=== PATIENT | female | born 1960 | race Hispanic/Latino ===

== ENCOUNTER 2021-04-08 18:35 | Emergency (ER) | payer SELFPAY ==
[2021-04-08 19:39] VITALS: BP 165/80
--- NOTE | 2021-04-08 20:47 | Emergency Department Report ---
ED ENT HPI - General Chief complaint: Dental/Oral Stated complaint: FACIAL SWELLING Time Seen by Provider: 04/08/21 20:32 Source: patient Mode of arrival: Ambulatory Limitations: No Limitations - History of Present Illness Initial comments: Patient is a 60-year-old female presents emergency room with complaints of dental pain that began yesterday. Patient states that she was eating a taco and broke her tooth. She states that this morning she woke up with some facial swelling. She has not seen a dentist in approximately 15 to 20 years. She denies any fever, vomiting, difficulty swallowing, difficulty breathing. PMHx copd. No allergies medications. - Related Data Home Medications Medication Instructions Recorded Confirmed Last Taken Amiodarone [Cordarone] 200 mg PO BID 12/20/14 12/20/14 Unknown Aspirin [Aspirin BABY CHEW TAB] 81 mg PO QDAY 12/20/14 12/20/14 Unknown Atorvastatin [Lipitor] 40 mg PO QHS 12/20/14 12/20/14 Unknown Famotidine [Pepcid] 20 mg PO BID 12/20/14 12/20/14 Unknown Ferrous Sulfate [Feosol] 325 mg PO BID 12/20/14 12/20/14 Unknown Furosemide [Lasix] 40 mg PO QDAY 12/20/14 12/20/14 Unknown HYDROcodone/APAP 5-325 [[place] 12/20/14 12/20/14 Unknown 5-325 mg TAB] Metoprolol [Lopressor] 25 mg PO BID 12/20/14 12/20/14 Unknown Multivitamin [Multi Vitamin Daily] 12/20/14 12/20/14 Unknown Potassium Chloride [K-Dur] 20 meq PO QDAY 12/20/14 12/20/14 Unknown Previous Rx's Medication Instructions Recorded Last Taken Type Albuterol Sulfate [Ventolin HFA] 2 puff IH Q4H PRN #1 hfa.aer.ad 12/20/14 Unknown Rx Azithromycin [Zithromax Z-ZONIA] 250 mg PO DAILY #6 tablet 12/20/14 Unknown Rx Prednisone [Prednisone 10 mg 10 mg PO .TAPER #1 tab.ds.pk 12/20/14 Unknown Rx (6-Day Pack, 21 Tabs)] Promethazine /Codeine 5 ml PO Q6H PRN #30 ml 12/20/14 Unknown Rx [Phenergan/Codeine 6.25-10 mg/5 ml] Chlorhexidine Mouthwash [Peridex] 15 ml MM BID #1 bottle 04/08/21 Unknown Rx Naproxen [EC-Naprosyn] 500 mg PO BID PRN #14 tablet.dr 04/08/21 Unknown Rx Penicillin Vk [Veetids TAB] 500 mg PO QID 7 Days #56 tablet 04/08/21 Unknown Rx Allergies Allergy/AdvReac Type Severity Reaction Status Date / Time No Known Allergies Allergy Unverified 11/20/14 04:11 ED Dental HPI - General Chief complaint: Dental/Oral Stated complaint: FACIAL SWELLING Time Seen by Provider: 04/08/21 20:32 Source: patient Mode of arrival: Ambulatory Limitations: No Limitations - Related Data Home Medications Medication Instructions Recorded Confirmed Last Taken Amiodarone [Cordarone] 200 mg PO BID 12/20/14 12/20/14 Unknown Aspirin [Aspirin BABY CHEW TAB] 81 mg PO QDAY 12/20/14 12/20/14 Unknown Atorvastatin [Lipitor] 40 mg PO QHS 12/20/14 12/20/14 Unknown Famotidine [Pepcid] 20 mg PO BID 12/20/14 12/20/14 Unknown Ferrous Sulfate [Feosol] 325 mg PO BID 12/20/14 12/20/14 Unknown Furosemide [Lasix] 40 mg PO QDAY 12/20/14 12/20/14 Unknown HYDROcodone/APAP 5-325 [[place] 12/20/14 12/20/14 Unknown 5-325 mg TAB] Metoprolol [Lopressor] 25 mg PO BID 12/20/14 12/20/14 Unknown Multivitamin [Multi Vitamin Daily] 12/20/14 12/20/14 Unknown Potassium Chloride [K-Dur] 20 meq PO QDAY 12/20/14 12/20/14 Unknown Previous Rx's Medication Instructions Recorded Last Taken Type Albuterol Sulfate [Ventolin HFA] 2 puff IH Q4H PRN #1 hfa.aer.ad 12/20/14 Unknown Rx Azithromycin [Zithromax Z-ZONIA] 250 mg PO DAILY #6 tablet 12/20/14 Unknown Rx Prednisone [Prednisone 10 mg 10 mg PO .TAPER #1 tab.ds.pk 12/20/14 Unknown Rx (6-Day Pack, 21 Tabs)] Promethazine /Codeine 5 ml PO Q6H PRN #30 ml 12/20/14 Unknown Rx [Phenergan/Codeine 6.25-10 mg/5 ml] Chlorhexidine Mouthwash [Peridex] 15 ml MM BID #1 bottle 04/08/21 Unknown Rx Naproxen [EC-Naprosyn] 500 mg PO BID PRN #14 tablet. 04/08/21 Unknown Rx Penicillin Vk [Veetids TAB] 500 mg PO QID 7 Days #56 tablet 04/08/21 Unknown Rx Allergies Allergy/AdvReac Type Severity Reaction Status Date / Time No Known Allergies Allergy Unverified 11/20/14 04:11 ED Review of Systems ROS: Stated complaint: FACIAL SWELLING Other details as noted in HPI Comment: All other systems reviewed and negative ED Past Medical Hx - Past Medical History Previous Medical History?: Yes Hx Congestive Heart Failure: No Hx Diabetes: No Hx Asthma: No Hx COPD: Yes Additional medical history: Heart Valve disease - Surgical History Past Surgical History?: Yes Hx Open Heart Surgery: Yes Additional Surgical History: Heart Valve Replacement. - Social History Smoking Status: Never Smoker Substance Use Type: None - Medications Home Medications: Home Medications Medication Instructions Recorded Confirmed Last Taken Type Albuterol Sulfate [Ventolin HFA] 2 puff IH Q4H PRN #1 hfa.aer.ad 12/20/14 Unknown Rx Amiodarone [Cordarone] 200 mg PO BID 12/20/14 12/20/14 Unknown History Aspirin [Aspirin BABY CHEW TAB] 81 mg PO QDAY 12/20/14 12/20/14 Unknown History Atorvastatin [Lipitor] 40 mg PO QHS 12/20/14 12/20/14 Unknown History Azithromycin [Zithromax Z-ZONIA] 250 mg PO DAILY #6 tablet 12/20/14 Unknown Rx Famotidine [Pepcid] 20 mg PO BID 12/20/14 12/20/14 Unknown History Ferrous Sulfate [Feosol] 325 mg PO BID 12/20/14 12/20/14 Unknown History Furosemide [Lasix] 40 mg PO QDAY 12/20/14 12/20/14 Unknown History HYDROcodone/APAP 5-325 [[place] 12/20/14 12/20/14 Unknown History 5-325 mg TAB] Metoprolol [Lopressor] 25 mg PO BID 12/20/14 12/20/14 Unknown History Multivitamin [Multi Vitamin Daily] 12/20/14 12/20/14 Unknown History Potassium Chloride [K-Dur] 20 meq PO QDAY 12/20/14 12/20/14 Unknown History Prednisone [Prednisone 10 mg 10 mg PO .TAPER #1 tab.ds.pk 12/20/14 Unknown Rx (6-Day Pack, 21 Tabs)] Promethazine /Codeine 5 ml PO Q6H PRN #30 ml 12/20/14 Unknown Rx [Phenergan/Codeine 6.25-10 mg/5 ml] Chlorhexidine Mouthwash [Peridex] 15 ml MM BID #1 bottle 04/08/21 Unknown Rx Naproxen [EC-Naprosyn] 500 mg PO BID PRN #14 tablet.dr 04/08/21 Unknown Rx Penicillin Vk [Veetids TAB] 500 mg PO QID 7 Days #56 tablet 04/08/21 Unknown Rx ED Physical Exam - General Limitations: No Limitations General appearance: alert, in no apparent distress - Head Head exam: Present: atraumatic, normocephalic - Eye Eye exam: Present: normal appearance - ENT ENT exam: Present: mucous membranes moist, other (there is a cracked tooth present to the left upper incisor, there is associated induration and erythema of the adjacent gumline, no fluctuance, no drainage, no necrosis, mild left facial edema, uvula is mildine, no uvular edema or deviation, no trismus, no tongue elevation, no muffled voice) - Respiratory Respiratory exam: Absent: respiratory distress, accessory muscle use - Neurological Exam Neurological exam: Present: alert, oriented X3 - Psychiatric Psychiatric exam: Present: normal affect, normal mood - Skin Skin exam: Present: warm, dry, intact ED Course Vital Signs 04/08/21 19:29 Temperature 98.5 F Pulse Rate 86 Respiratory 18 Rate Blood Pressure 165/80 O2 Sat by Pulse 96 Oximetry ED Medical Decision Making - Medical Decision Making Patient is a 60-year-old female presents emergency room with complaints of dental pain that began yesterday. Patient states that she was eating a taco and broke her tooth. She states that this morning she woke up with some facial swelling. She has not seen a dentist in approximately 15 to 20 years. She denies any fever, vomiting, difficulty swallowing, difficulty breathing. PMHx copd. No allergies medications. vss. on exam: there is a cracked tooth present to the left upper incisor, there is associated induration and erythema of the adjacent gumline, no fluctuance, no drainage, no necrosis, mild left facial edema, uvula is mildine, no uvular edema or deviation, no trismus, no tongue elevation, no muffled voice. examination appears consistent with dental abscess and mild early facial cellulitis. No signs of facial cellulitis or Joshua's at this time. Given prescription for medications. Discussed the importance of dental follow-up. Advised patient Please take medication as prescribed. Follow-up with a dentist. It is very important that you follow-up. Return to emergency room for any new or worsening symptoms. Critical care attestation.: If time is entered above; I have spent that time in minutes in the direct care of this critically ill patient, excluding procedure time. ED Disposition Clinical Impression: Dental abscess, Cracked tooth, Dental caries Disposition: TO HOME OR SELFCARE Is pt being admited?: No Does the pt Need Aspirin: No Condition: Stable Instructions: Dental Abscess Additional Instructions: Please take medication as prescribed. Follow-up with a dentist. It is very important that you follow-up. Return to emergency room for any new or worsening symptoms. Prescriptions: Naproxen [EC-Naprosyn] 500 mg PO BID PRN #14 tablet.dr RIOS Reason: pain Chlorhexidine Mouthwash [Peridex] 15 ml MM BID #1 bottle Penicillin Vk [Veetids TAB] 500 mg PO QID 7 Days #56 tablet Referrals: [facility] [Outside] - 2-3 Days [facility] [Outside] - 2-3 Days Time of Disposition: 20:45 Print Language: SPANISH
== END 2021-04-08 20:51 | disposition home or self-care (01) ==
LOC: ED 18:35
DX: K04.7 Periapical abscess without sinus (principal); K03.81 Cracked tooth; K02.9 Dental caries, unspecified; J44.9 Chronic obstructive pulmonary disease, unspecified; Z98.890 Other specified postprocedural states; Z79.899 Other long term (current) drug therapy
CPT/HCPCS: 99282

== ENCOUNTER 2021-05-17 12:42 | Emergency (ER) | payer OTHER, SELFPAY ==
[2021-05-17] MEDS ORDERED: ACETAMINOPHEN 325 MG TAB PO ONE (16:59)
--- NOTE | 2021-05-17 17:06 | Emergency Department Report ---
- General Chief Complaint: Upper Respiratory Infection Stated Complaint: COVID TAMEKA, BODY ACHE Time Seen by Provider: 05/17/21 16:58 Source: patient Mode of arrival: Ambulatory Limitations: No Limitations - History of Present Illness Initial Comments: Patient is a 60-year-old female presents emergency room with complaints of symptoms of COVID 19. She states that her daughter and her granddaughter both tested positive for Covid. she states that she was supposed to be tested today but she missed her appointment because she slept in. She states that she has had symptoms since Monday night 05/14/2021. Patient states her symptoms are fever, chills, fatigue, generalized body aches, headache, dry cough, mild occasional shortness of breath, diarrhea. she states occasionally after coughing she has wheezing. She denies any nausea, vomiting, chest pain, abdominal pain. Past medical history of valve replacement with pig valve. No allergies to medicines. She states that she is a non-smoker. - Related Data Home Medications Medication Instructions Recorded Confirmed Last Taken Amiodarone [Cordarone] 200 mg PO BID 12/20/14 12/20/14 Unknown Aspirin [Aspirin BABY CHEW TAB] 81 mg PO QDAY 12/20/14 12/20/14 Unknown Atorvastatin [Lipitor] 40 mg PO QHS 12/20/14 12/20/14 Unknown Famotidine [Pepcid] 20 mg PO BID 12/20/14 12/20/14 Unknown Ferrous Sulfate [Feosol] 325 mg PO BID 12/20/14 12/20/14 Unknown Furosemide [Lasix] 40 mg PO QDAY 12/20/14 12/20/14 Unknown HYDROcodone/APAP 5-325 [[place] 12/20/14 12/20/14 Unknown 5-325 mg TAB] Metoprolol [Lopressor] 25 mg PO BID 12/20/14 12/20/14 Unknown Multivitamin [Multi Vitamin Daily] 12/20/14 12/20/14 Unknown Potassium Chloride [K-Dur] 20 meq PO QDAY 12/20/14 12/20/14 Unknown Previous Rx's Medication Instructions Recorded Last Taken Type Albuterol Sulfate [Ventolin HFA] 2 puff IH Q4H PRN #1 hfa.aer.ad 12/20/14 Unknown Rx Azithromycin [Zithromax Z-ZONIA] 250 mg PO DAILY #6 tablet 12/20/14 Unknown Rx Prednisone [Prednisone 10 mg 10 mg PO .TAPER #1 tab.ds.pk 12/20/14 Unknown Rx (6-Day Pack, 21 Tabs)] Promethazine /Codeine 5 ml PO Q6H PRN #30 ml 12/20/14 Unknown Rx [Phenergan/Codeine 6.25-10 mg/5 ml] Chlorhexidine Mouthwash [Peridex] 15 ml MM BID #1 bottle 04/08/21 Unknown Rx Naproxen [EC-Naprosyn] 500 mg PO BID PRN #14 tablet.dr 04/08/21 Unknown Rx Penicillin Vk [Veetids TAB] 500 mg PO QID 7 Days #56 tablet 04/08/21 Unknown Rx Albuterol Sulfate [Proventil Hfa] 1 puff IH TID PRN #1 hfa.aer.ad 05/17/21 Unknown Rx Benzonatate [Tessalon Perles] 100 mg PO Q8HR PRN #12 capsule 05/17/21 Unknown Rx guaiFENesin ER [Mucinex ER] 600 mg PO BID #14 tablet.er 05/17/21 Unknown Rx Allergies Allergy/AdvReac Type Severity Reaction Status Date / Time No Known Allergies Allergy Unverified 11/20/14 04:11 ED Review of Systems ROS: Stated complaint: COVID TAMEKA, BODY ACHE Other details as noted in HPI Comment: All other systems reviewed and negative ED Past Medical Hx - Past Medical History Previous Medical History?: Yes Hx Congestive Heart Failure: No Hx Diabetes: No Hx Asthma: No Hx COPD: Yes Additional medical history: Heart Valve disease - Surgical History Past Surgical History?: Yes Hx Open Heart Surgery: Yes Additional Surgical History: Heart Valve Replacement. - Social History Smoking Status: Never Smoker Substance Use Type: None - Medications Home Medications: Home Medications Medication Instructions Recorded Confirmed Last Taken Type Albuterol Sulfate [Ventolin HFA] 2 puff IH Q4H PRN #1 hfa.aer.ad 12/20/14 Unknown Rx Amiodarone [Cordarone] 200 mg PO BID 12/20/14 12/20/14 Unknown History Aspirin [Aspirin BABY CHEW TAB] 81 mg PO QDAY 12/20/14 12/20/14 Unknown History Atorvastatin [Lipitor] 40 mg PO QHS 12/20/14 12/20/14 Unknown History Azithromycin [Zithromax Z-ZONIA] 250 mg PO DAILY #6 tablet 12/20/14 Unknown Rx Famotidine [Pepcid] 20 mg PO BID 12/20/14 12/20/14 Unknown History Ferrous Sulfate [Feosol] 325 mg PO BID 12/20/14 12/20/14 Unknown History Furosemide [Lasix] 40 mg PO QDAY 12/20/14 12/20/14 Unknown History HYDROcodone/APAP 5-325 [[place] 12/20/14 12/20/14 Unknown History 5-325 mg TAB] Metoprolol [Lopressor] 25 mg PO BID 12/20/14 12/20/14 Unknown History Multivitamin [Multi Vitamin Daily] 12/20/14 12/20/14 Unknown History Potassium Chloride [K-Dur] 20 meq PO QDAY 12/20/14 12/20/14 Unknown History Prednisone [Prednisone 10 mg 10 mg PO .TAPER #1 tab.ds.pk 12/20/14 Unknown Rx (6-Day Pack, 21 Tabs)] Promethazine /Codeine 5 ml PO Q6H PRN #30 ml 12/20/14 Unknown Rx [Phenergan/Codeine 6.25-10 mg/5 ml] Chlorhexidine Mouthwash [Peridex] 15 ml MM BID #1 bottle 04/08/21 Unknown Rx Naproxen [EC-Naprosyn] 500 mg PO BID PRN #14 tablet.dr 04/08/21 Unknown Rx Penicillin Vk [Veetids TAB] 500 mg PO QID 7 Days #56 tablet 04/08/21 Unknown Rx Albuterol Sulfate [Proventil Hfa] 1 puff IH TID PRN #1 hfa.aer.ad 05/17/21 Unkn own Rx Benzonatate [Tessalon Perles] 100 mg PO Q8HR PRN #12 capsule 05/17/21 Unknown Rx guaiFENesin ER [Mucinex ER] 600 mg PO BID #14 tablet.er 05/17/21 Unknown Rx ED Physical Exam - General Limitations: No Limitations General appearance: alert, in no apparent distress - Head Head exam: Present: atraumatic, normocephalic - Eye Eye exam: Present: normal appearance - ENT ENT exam: Present: mucous membranes moist - Respiratory Respiratory exam: Present: normal lung sounds bilaterally. Absent: respiratory distress, wheezes, rales, rhonchi, stridor, chest wall tenderness, accessory muscle use, decreased breath sounds, prolonged expiratory - Cardiovascular Cardiovascular Exam: Present: regular rate, normal rhythm, systolic murmur - Extremities Exam Extremities exam: Absent: pedal edema - Neurological Exam Neurological exam: Present: alert, oriented X3 - Psychiatric Psychiatric exam: Present: normal affect, normal mood - Skin Skin exam: Present: warm, dry, intact ED Course Vital Signs 05/17/21 05/17/21 05/17/21 15:11 18:00 18:21 Temperature 100.2 F H Pulse Rate 86 88 88 Respiratory 20 18 18 Rate Blood Pressure 140/78 Blood Pressure 118/84 118/84 [Right] O2 Sat by Pulse 98 95 95 Oximetry ED Medical Decision Making - Lab Data Result diagrams: 05/17/21 17:00 05/17/21 17:00 Lab Results 05/17/21 05/17/21 Range/Units 17:00 17:00 WBC 5.3 (4.5-11.0) K/mm3 RBC 4.46 (3.65-5.03) M/mm3 Hgb 14.7 H (10.1-14.3) gm/dl Hct 42.8 (30.3-42.9) % MCV 96 (79-97) fl MCH 33 H (28-32) pg MCHC 34 (30-34) % RDW 13.8 (13.2-15.2) % Plt Count 157 (140-440) K/mm3 Lymph % (Auto) 19.0 (13.4-35.0) % [place] % (Auto) 7.3 (0.0-7.3) % Eos % (Auto) 0.2 (0.0-4.3) % Baso % (Auto) 0.4 (0.0-1.8) % Lymph # (Auto) 1.0 L (1.2-5.4) K/mm3 [place] # (Auto) 0.4 (0.0-0.8) K/mm3 Eos # (Auto) 0.0 (0.0-0.4) K/mm3 Baso # (Auto) 0.0 (0.0-0.1) K/mm3 Seg Neutrophils % 73.1 H (40.0-70.0) % Seg Neutrophils # 3.9 (1.8-7.7) K/mm3 Sodium 135 L (137-145) mmol/L Potassium 4.0 (3.6-5.0) mmol/L Chloride 97.9 L (98-107) mmol/L Carbon Dioxide 27 (22-30) mmol/L Anion Gap 14 mmol/L BUN 13 (7-17) mg/dL Creatinine 0.6 (0.6-1.2) mg/dL Estimated GFR > 60 ml/min BUN/Creatinine Ratio 22 % Glucose 121 H (65-100) mg/dL Calcium 9.4 (8.4-10.2) mg/dL Total Bilirubin 0.40 (0.1-1.2) mg/dL AST 35 (5-40) units/L ALT 30 (7-56) units/L Alkaline Phosphatase 143 H (35-129) units/L Total Protein 7.4 (6.3-8.2) g/dL Albumin 4.6 (3.9-5) g/dL Albumin/Globulin Ratio 1.6 % Vital Signs 05/17/21 05/17/21 05/17/21 15:11 18:00 18:21 Temperature 100.2 F H Pulse Rate 86 88 88 Respiratory 20 18 18 Rate Blood Pressure 140/78 Blood Pressure 118/84 118/84 [Right] O2 Sat by Pulse 98 95 95 Oximetry - Radiology Data Radiology results: report reviewed Ordering Physician: ALISON JACKSON MD Date of Service: 05/17/21 Procedure(s): XR chest routine 2V Accession Number(s): [id number] cc: ALISON JACKSON MD Fluoro Time In Minutes: CHEST 2 VIEWS INDICATION / CLINICAL INFORMATION: SOB. COMPARISON: Chest radiograph 11/20/2014 FINDINGS: SUPPORT DEVICES: He is status post median sternotomy. Aortic valve prosthesis. HEART / MEDIASTINUM: Cardiomegaly. LUNGS / PLEURA: Calcified granuloma right midlung zone. No focal consolidation. No significant effusion No pneumothorax. ADDITIONAL FINDINGS: No significant additional findings. IMPRESSION: 1. No acute findings. Signer Name: Yovani Moreira MD Signed: 05/17/2021 5:19 PM Workstation Name: [id number] Transcribed By: SB Dictated By: YOVANI MOREIRA MD Electronically Authenticated By: YOVANI MOREIRA MD Signed Date/Time: 05/17/211718 DD/ 16 TD/TT: - Medical Decision Making Patient is a 60-year-old female presents emergency room with complaints of symptoms of COVID 19. She states that her daughter and her granddaughter both tested positive for Covid. she states that she was supposed to be tested today but she missed her appointment because she slept in. She states that she has had symptoms since [place] night 05/14/2021. Patient states her symptoms are fever, chills, fatigue, generalized body aches, headache, dry cough, mild occasional shortness of breath, diarrhea. she states occasionally after coughing she has wheezing. She denies any nausea, vomiting, chest pain, abdominal pain. Past medical history of valve replacement with pig valve. No allergies to medicines. She states that she is a non-smoker. Vitals with mild low-grade temperature, otherwise stable. Patient is maintaining oxygen saturation of 95% or greater on room air. Chest x-ray 1. No acute findings. Labs are stable. Discussed possibility of COVID-19 with patient, discussed outpatient testing, discussed self quarantine, discussed strict return precautions. Advised patient to get a pulse oximetry [id number] and to return if oxygen saturation was 93% or lower. Patient has no signs of severe COVID at this time, she is maintaining her oxygen saturation, her x-ray is WNL. Patient given prescription for symptomatic relief. Advised patient please take medication as prescribed. Please increase your fluid intake over the next several days. May take Tylenol as needed for fever or body aches. Follow-up with a primary care doctor for reexamination. Return to emergency room immediately for any new or worsening symptoms including but not limited to difficulty breathing, shortness of breath, severe chest pain, unable to tolerate by mouth intake, etc. Please self quarantine for 10 days from the onset of your symptoms. Please do not go out in public. If you are around others at home please wear a mask. If you need to cough or sneeze please do so in a napkin and immediately throw it away and immediately wash your hands. Wash your hands frequently. Wipe everything down. Recommend for you to get COVID-19 testing, may have this done at primary care doctor, health department, [facility], etc. Critical care attestation.: If time is entered above; I have spent that time in minutes in the direct care of this critically ill patient, excluding procedure time. ED Disposition Clinical Impression: Exposure to COVID-19 virus Upper respiratory infection Qualifiers: URI type: unspecified URI Qualified Code(s): J06.9 - Acute upper respiratory infection, unspecified Disposition: DC- TO HOME OR SELFCARE Is pt being admited?: No Does the pt Need Aspirin: No Condition: Stable Instructions: COVID-19 Additional Instructions: please take medication as prescribed. Please increase your fluid intake over the next several days. May take Tylenol as needed for fever or body aches. Follow-up with a primary care doctor for reexamination. Return to emergency room immediately for any new or worsening symptoms including but not limited to difficulty breathing, shortness of breath, severe chest pain, unable to tolerate by mouth intake, etc. Please self quarantine for 10 days from the onset of your symptoms. Please do not go out in public. If you are around others at home please wear a mask. If you need to cough or sneeze please do so in a napkin and immediately throw it away and immediately wash your hands. Wash your hands frequently. Wipe everything down. Recommend for you to get COVID-19 testing, may have this done at primary care doctor, health department, [facility], etc. Prescriptions: guaiFENesin ER [Mucinex ER] 600 mg PO BID #14 tablet.er Albuterol Sulfate [Proventil Hfa] 1 puff IH TID PRN #1 hfa.aer.ad PRN Reason: wheezing Benzonatate [Tessalon Perles] 100 mg PO Q8HR PRN #12 capsule PRN Reason: cough Referrals: MILLER SINGH MD [Staff Physician] - 2-3 Days [facility] [Provider Group] - 2-3 Days Forms: Work/School Release Form(ED) Time of Disposition: 17:41 Print Language: MAORI
[2021-05-17 17:18] LABS: Basophils % (Auto) 0.4 % (0.0-1.8); Eosinophils % (Auto) 0.2 % (0.0-4.3); Hematocrit 42.8 % (30.3-42.9); Hemoglobin 14.7 gm/dl (10.1-14.3); Mean Corpuscular HGB Conc 34 % (30-34); Mean Corpuscular Volume 96 fl (79-97); Monocytes # (Auto) 0.4 K/mm3 (0.0-0.8); Monocytes % (Auto) 7.3 % (0.0-7.3); Platelet Count 157 K/mm3 (140-440); Red Blood Count 4.46 M/mm3 (3.65-5.03); Red Cell Distribution Width 13.8 % (13.2-15.2)
--- NOTE | 2021-05-17 17:23 | XRay Report ---
CHEST 2 VIEWS INDICATION / CLINICAL INFORMATION: SOB. COMPARISON: Chest radiograph 11/20/2014 FINDINGS: SUPPORT DEVICES: He is status post median sternotomy. Aortic valve prosthesis. HEART / MEDIASTINUM: Cardiomegaly. LUNGS / PLEURA: Calcified granuloma right midlung zone. No focal consolidation. No significant effusi on No pneumothorax. ADDITIONAL FINDINGS: No significant additional findings. IMPRESSION: 1. No acute findings. Signer Name: Yovani Fernandes MD Signed: 05/17/2021 5:19 PM Workstation Name: [id number]
[2021-05-17 17:32] LABS: Alanine Aminotransferase 30 units/L (7-56); Albumin 4.6 g/dL (3.9-5); Blood Urea Nitrogen 13 mg/dL (7-17); Calcium 9.4 mg/dL (8.4-10.2); Hemolysis Index 5
[2021-05-17 17:35] LABS: BUN/Creatinine Ratio 22
[2021-05-17 18:23] VITALS: BP 118/84
== END 2021-05-17 18:00 | disposition home or self-care (01) ==
LOC: ED 12:42
DX: J06.9 Acute upper respiratory infection, unspecified (principal); Z20.822 Contact with and (suspected) exposure to COVID-19; J44.9 Chronic obstructive pulmonary disease, unspecified; Z98.890 Other specified postprocedural states; Z72.89 Other problems related to lifestyle; Z79.899 Other long term (current) drug therapy
CPT/HCPCS: 36415; 71046; 80053; 85025; 99283

== ENCOUNTER 2021-12-22 08:05 | Emergency (ER) | payer SELFPAY ==
[2021-12-22 09:57] VITALS: BP 148/82
--- NOTE | 2021-12-22 10:08 | Emergency Department Report ---
ED Dysuria HPI - HPI Chief Complaint: Urogenital-Female Stated Complaint: LEAKING URINE Time Seen by Provider: 12/22/21 10:04 Duration: 2 Days Location of Discomfort: Suprapubic Severity: Mild Symptoms: Dysuria: Yes, Frequency: Yes, Suprapubic Pain: Yes, Flank Pain: No, Fever: No, Hematuria: Yes, Abdominal Pain: No, Previous UTI's: No Other History: 61 yo comes to ER with dysuria and hematuria. no pain. no fever. no chills. ambulatory and in nad. ED Review of Systems ROS: Stated complaint: LEAKING URINE Other details as noted in HPI Comment: All other systems reviewed and negative ED Past Medical Hx - Past Medical History Previous Medical History?: Yes Hx Congestive Heart Failure: No Hx Diabetes: No Hx Asthma: No Hx COPD: Yes Additional medical history: Heart Valve disease - Surgical History Past Surgical History?: Yes Hx Open Heart Surgery: Yes Additional Surgical History: Heart Valve Replacement. - Family History Family history: no significant - Social History Smoking Status: Never Smoker Substance Use Type: None - Medications Home Medications: Home Medications Medication Instructions Recorded Confirmed Last Taken Type Amiodarone [Cordarone] 200 mg PO BID 12/20/14 12/20/14 Unknown History Aspirin [Aspirin BABY CHEW TAB] 81 mg PO QDAY 12/20/14 12/20/14 Unknown History Atorvastatin [Lipitor] 40 mg PO QHS 12/20/14 12/20/14 Unknown History Famotidine [Pepcid] 20 mg PO BID 12/20/14 12/20/14 Unknown History Ferrous Sulfate [Feosol] 325 mg PO BID 12/20/14 12/20/14 Unknown History Furosemide [Lasix] 40 mg PO QDAY 12/20/14 12/20/14 Unknown History Metoprolol [Lopressor] 25 mg PO BID 12/20/14 12/20/14 Unknown History Multivitamin [Multi Vitamin Daily] 12/20/14 12/20/14 Unknown History Potassium Chloride [K-Dur] 20 meq PO QDAY 12/20/14 12/20/14 Unknown History Sulfamethoxazole/Trimethoprim 1 each PO BID #10 tablet 12/22/21 Unknown Rx [Bactrim DS TAB] Dysuria Exam - Exam General: Vital signs noted. No distress. Alert and acting appropriately. Exam: Yes Moist Mucous Membranes, No CVA Tenderness, No Abdominal Tenderness, No Rigidity or Guarding ED Course Vital Signs 12/22/21 09:55 Temperature 98.0 F Pulse Rate 81 Respiratory 18 Rate Blood Pressure 148/82 [Right] O2 Sat by Pulse 99 Oximetry ED Medical Decision Making - Medical Decision Making Vital Signs 12/22/21 09:55 Temperature 98.0 F Pulse Rate 81 Respiratory 18 Rate Blood Pressure 148/82 [Right] O2 Sat by Pulse 99 Oximetry Lab Results 12/22/21 Range/Units Unknown Urine Color Yellow (Yellow) Urine Turbidity Slightly-cloudy (Clear) Urine pH 7.0 (5.0-7.0) Ur Specific [place] 1.003 (1.003-1.030) Urine Protein <15 mg/dl (Negative) mg/dL Urine Glucose (UA) Neg (Negative) mg/dL Urine Ketones Neg (Negative) mg/dL Urine Blood Lg (Negative) Urine Nitrite Neg (Negative) Urine Bilirubin Neg (Negative) Urine Urobilinogen < 2.0 (<2.0) mg/dL Ur Leukocyte Esterase Lg (Negative) Urine WBC (Auto) 135.0 H (0.0-6.0) /HPF Urine RBC (Auto) 14.0 (0.0-6.0) /HPF U Epithel Cells (Auto) 1.0 (0-13.0) /HPF Urine Bacteria (Auto) 3+ (Negative) /HPF Urine Yeast (Budding) 2+ /HPF rocephin 1g im in ER dc home with dc plan of care including pcp and obgyn follow up. Rx for bactrim. Pt verbalizes understanding of plan of care Critical care attestation.: If time is entered above; I have spent that time in minutes in the direct care of this critically ill patient, excluding procedure time. ED Disposition Clinical Impression: UTI (urinary tract infection) Qualifiers: Urinary tract infection type: site unspecified Hematuria presence: with hematuria Qualified Code(s): N39.0 - Urinary tract infection, site not specified Disposition: 01 HOME / SELF CARE / HOMELESS Is pt being admited?: No Does the pt Need Aspirin: No Condition: Stable Instructions: Urinary Tract Infection, Adult, [id number] Additional Instructions: stay well hydrated motrin or tylenol for pain med as ordered today until gone follow up with pcp next week referral below follow up with obgyn if any vaginal bleeding Prescriptions: Sulfamethoxazole/Trimethoprim [Bactrim DS TAB] 1 each PO BID #10 tablet Referrals: PRIMARY CAREMD [Primary Care Provider] - 3-5 Days MILLER SINGH MD [Staff Physician] - 3-5 Days LASHAWN FAIR MD [Staff Physician] - 3-5 Days Time of Disposition: 12:21
[2021-12-22 12:09] LABS: Bacteria,Urine 3+ /HPF (Negative); Bilirubin,Urine NEG (Negative); Blood,Urine LG (Negative); Color,Urine Yellow (Yellow); Protein,Urine <15 mg/dL mg/dL (Negative); Urobilinogen,Urine < 2.0 mg/dL (<2.0)
[2021-12-22] MEDS ORDERED: LIDOCAINE-MPF (1%) 10 MG/1 ML VIAL 5 ML INFILTRATI ONE (12:19)
[2021-12-22] MEDS ORDERED: IBUPROFEN 800 MG TAB PO ONE (12:23)
== END 2021-12-22 13:21 | disposition home or self-care (01) ==
LOC: ED 08:05
DX: N39.0 Urinary tract infection, site not specified (principal)
CPT/HCPCS: 81001; 96372; 99283; J0696; J3490